=== PATIENT | female | born 1975 | race African-American/Black ===

== ENCOUNTER 2017-01-20 13:56 | Emergency (ER) | payer OTHER ==
[2017-01-20 14:12] VITALS: BP 124/88; PULSE 95; TEMP 99.1; BMI 36.6
--- NOTE | 2017-01-20 14:12 | PDOC ---
History of Present Illness - General Chief Complaint: Pain, Acute Stated Complaint: LEFT LEG PAIN AND PALPITATIONS Time Seen by Provider: 01/20/17 13:59 History Source: Patient Exam Limitations: No Limitations - History of Present Illness Initial Comments: 01/20/17 14:57 45y F hx of asthma presents with LLE pain. Pt states pain started sevearl days ago, worse when she bears weeight but worsening daria past day where she can barely walk. Pt notes the pain started initially on her distal posterior LLE near achilels tendon, and gradual started sperading up her leg to her calf. Ptd enies any recent trauma/falls/injuries. Pt has been resting it but has not taken any paoin meds. Pt endorses feeling intermittent palpitations, one episode last night and again this morning where she felt her heart beating more prominently and maybe alittle irregularly lasting for 5 min. Pt deneis any increased swelling of her calfs, hemoptysis, fever/chills, chest pain, CH[employer]. no smoking no hx of PE/dvt, but mom has hx of blood cluts (pt is notsure why) Past History - Past Medical History Allergies/Adverse Reactions: Allergies Allergy/AdvReac Type Severity Reaction Status Date / Time No Known Allergies Allergy Unverified 01/20/17 14:14 Home Medications: Ambulatory Orders Montelukast Na [Singulair -] 10 mg PO HS 01/20/17 Asthma: Yes - Surgical History Gastric Stapling: Yes - Psycho/Social/Smoking Cessation Hx Anxiety: No Suicidal Ideation: No Smoking History: Never smoked Information on smoking cessation initiated: No Hx Alcohol Use: No Drug/Substance Use Hx: No Substance Use Type: None Review of Systems - Review of Systems Able to Perform ROS?: Yes Comments:: 01/20/17 15:00 Constitutional - no reported Fever, Chills, HEENT: no reported vision changes, sore throat Respiratory: no reported cough, sob, hemoptysis Cardiac: +palpitations, no reported chest pain, light headedness, leg swelling Abd/GI: no reported abd pain, nausea, vomiting, blood per rectum, melena, diarrhea : no reported dysuria, frequency, discharge Musculskelatal - +LLE pain no reported back pain, joint swelling skin - no reported bruising, erythema, rash neurological: no reported headache, numbness, focal weakness, tingling, ataxia, hematologic: no reported anemia, easy bruising, easy bleeding *Physical Exam - Vital Signs Last Vital Signs Temp Pulse Resp BP Pulse Ox 99.1 F 95 H 16 124/88 99 01/20/17 13:58 01/20/17 13:58 01/20/17 13:58 01/20/17 13:58 01/20/17 13:58 - Physical Exam Comments: 01/20/17 15:01 GENERAL: The patient is awake, alert, and fully oriented, Nontoxic - in no acute distress. HEAD: Normocephalic, atraumatic. EYES: extraocular movements intact, sclera anicteric, conjunctiva clear. ENT: Normal voice, Moist mucous membranes. NECK: Normal range of motion, supple LUNGS: Breath sounds equal, clear to auscultation bilaterally. No wheezes, no rhonchi, no rales. HEART: Regular rate and rhythm, normal S1 and S2 without murmur, rub or gallop. ABDOMEN: Soft, nontender, normoactive bowel sounds. No guarding, no rebound. . No CVA tenderness EXTREMITIES: Tenderness is located at insertion point of Achilles tendon to calcaneus, but mild tenderness of achilles tendon and calf, large calfs, but seems symemtric, no pitting edema. NEUROLOGICAL: No facial assymetry, Normal speech, PSYCH: Normal mood, normal affect. SKIN: Warm, Dry, normal turgor, Heart Score/ECG Review - ECG Impressions Comment:: 01/20/17 15:01 Twelve-lead EKG was performed and reviewed by me. There is normal sinus rhythm with a normal rate. Rate of 84 The axis is normal. The intervals are normal. There is normal R wave progression There are no ST or T wave abnormalities. Impression: Normal twelve-lead EKG ED Treatment Course - LABORATORY CBC & Chemistry Diagram: 01/20/17 14:25 01/20/17 14:25 Medical Decision Making - Medical Decision Making 01/20/17 15:02 Suspect Achilles tendonopathy Due to the familal history of DVT will obtain ultrasound Will obtain EKG we'll check basic blood work to rule out anemia, metabolic derangement as cause of her palpitations ibuprofen for her pain 01/20/17 15:52 labs and US engative will dc with pmd fu return precautions were discussed I discussed the physical exam findings, ancillary test results and final diagnoses with the patient. I answered all of the patient's questions. The patient was satisfied with the care received and felt comfortable with the discharge plan and treatment plan. The patient will call their primary care physician within 24 hours to arrange follow-up and will return to the Emergency Department with any new, persistent or worsening symptoms. *DC/Admit/Observation/Transfer Diagnosis at time of Disposition: Achilles tendinitis, left leg - Discharge Dispostion Disposition: HOME Condition at time of disposition: Improved Admit: No - Referrals Referrals: Jermaine Ascencio MD [Staff Physician] - - Patient Instructions Printed Discharge Instructions: DI for Achilles Tendinopathy Additional Instructions: Return to the emergency department immediately with ANY new, persistent or worsening symptoms. Take ibuprofen or Tylenol as needed for pain Try to minimize ambulation. You MUST call and follow up with your doctor tomorrow for further evaluation of your symptoms. Results were discussed with you. Please make sure your doctor reviews the results of your emergency evaluation.
[2017-01-20 14:55] LABS: BASOPHIL 1.3 % (0-2.0); MCH 27.5 pg (25.7-33.7); MCHC 32.5 g/dl (32.0-36.0); MEAN CELL VOLUME 84.8 fl (80-96); MEAN PLT VOLUME 9.5 fl (7.5-11.1); PLATELET COUNT 249 K/MM3 (134-434); RDW 14.4 % (11.6-15.6); WHITE BLOOD COUNT 7.2 K/mm3 (4.0-10.8)
[2017-01-20] MEDS ORDERED: IBUPROFEN 400 MG TABLET (FP) PO ONE ×2 (14:56→14:58)
[2017-01-20 15:12] LABS: ALBUMIN 3.9 g/dl (3.5-5.0); ALK PHOS 65 U/L (32-92); ANION GAP 6 (8-16); BILIRUBIN,TOTAL 0.3 mg/dl (0.2-1.0); CALCIUM 8.9 mg/dl (8.4-10.2); CO2 28 mmol/L (22-28); GLUCOSE,RANDOM 104 mg/dl (74-106); SGOT/AST 19 U/L (10-42); SGPT/ALT 15 U/L (10-40)
--- NOTE | 2017-01-21 17:16 | EKG ---
Test Reason : Blood Pressure : / mmHG Vent. Rate : 084 BPM Atrial Rate : 084 BPM P-R Int : 152 ms QRS Dur : 096 ms QT Int : 374 ms P-R-T Axes : 073 064 040 degrees QTc Int : 441 ms NORMAL SINUS RHYTHM NORMAL ECG NO PREVIOUS ECGS AVAILABLE Confirmed by LISA CHACKO MD ([id number]) on 01/21/2017 5:16:21 PM Referred By: MD DUBOSE Confirmed By:LISA CHACKO MD
== END 2017-01-20 16:07 | disposition home or self-care (01) ==
LOC: FER 13:56
DX: M76.62 Achilles tendinitis, left leg (principal); J45.909 Unspecified asthma, uncomplicated
CPT/HCPCS: 36415; 80053; 85025; 93005; 93971-TC; 99283-25

== ENCOUNTER 2019-03-03 02:26 | Emergency (ER) | payer OTHER ==
[2019-03-03 02:35] VITALS: BP 150/93; PULSE 74; TEMP 98.3; BMI 37.8
--- NOTE | 2019-03-03 02:41 | PDOC ---
History of Present Illness - General Chief Complaint: Bite Stated Complaint: BUG BITE ON BUTT CHEEK Time Seen by Provider: 03/03/19 02:34 - History of Present Illness Initial Comments: This 43-year-old woman with a history of asthma presents with red, swollen, itchy area of the right buttock for the last 36 hours. Patient states that she was at the pool when she first noted insect bite in the area. Over the next 24 hours, area became more swollen and red. She applied 2.5% hydrocortisone cream that she had at home, along with cool compresses to the area. She presents now because area is persistently swollen and itchy. There has been no purulent drainage/patient has no fever or chills. No wheezing/difficulty breathing. No history of cellulitis/abscess. She has no history of diabetes mellitus or difficulty with wound healing. She denies previous local ALLERGIC reaction to insect bites No known allergies to medications Medications as noted below Past History - Past Medical History Allergies/Adverse Reactions: Allergies Allergy/AdvReac Type Severity Reaction Status Date / Time No Known Allergies Allergy Verified 03/03/19 02:27 Home Medications: Ambulatory Orders Montelukast Na [Singulair -] 10 mg PO HS 01/20/17 Mometasone/Formoterol [Dulera 100 Mcg/5 Mcg Inhaler] 2 inh IH BID 03/03/19 Asthma: Yes COPD: No - Surgical History Gastric Stapling: Yes - Immunization History Immunization Up to Date: Yes - Suicide/Smoking/Psychosocial Hx Smoking History: Never smoked Have you smoked in the past 12 months: No Information on smoking cessation initiated: No Hx Alcohol Use: No Drug/Substance Use Hx: No Substance Use Type: None Review of Systems - Review of Systems Able to Perform ROS?: Yes Comments:: 12 point review of systems is negative except for what is noted in the history of present illness *Physical Exam - Vital Signs Last Vital Signs Temp Pulse Resp BP Pulse Ox 98.3 F 74 16 150/93 100 03/03/19 02:32 03/03/19 02:32 03/03/19 02:32 03/03/19 02:32 03/03/19 02:32 - Physical Exam Comments: GENERAL: Adult female, alert and oriented 3, in no acute distress HEAD: Normal with no signs of trauma. EYES: PERRLA, EOMI, sclera anicteric, conjunctiva clear. ENT: Ears normal, nares patent, oropharynx clear without exudates. NECK: Normal range of motion, supple without lymphadenopathy, JVD, or masses. LUNGS: Breath sounds equal, clear to auscultation bilaterally. No wheezes, and no crackles. NEUROLOGICAL: Cranial nerves II through XII grossly intact. Normal speech. No focal neurological deficits. SKIN: 10 cm x 8 cm oval, edematous, slightly indurated, erythematous area of the superior portion of the right buttock. No fluctuance, no purulent discharge noted. Area is slightly warm to touch. It is not tender Progress Note - Progress Note Progress Note: This 43-year-old woman presents with 36 hours of pruritic, erythematous, mildly indurated area around mosquito bite on her right buttock. No previous history of localized ALLERGIC reaction to insect toxin. No evidence of systemic ALLERGIC reaction. Exam is noted. Presentation most consistent with enhanced local ALLERGIC reaction to insect toxin (probably mosquito). No evidence of systemic ALLERGIC reaction. The patient has already been using hydrocortisone cream which she previously had for another issue. She can continue to use this as well as local cool compresses. She can also use an antihistamine such as Benadryl or nonsedating Claritin/Zyrtec for pruritus. Time course is too early for secondary bacterial infection; patient should continue observation of the area and return here or see her doctor if she has persistence of symptoms for more than 3 days or area becomes larger and more symptomatic *DC/Admit/Observation/Transfer Diagnosis at time of Disposition: Allergic reaction to insect bite - Discharge Dispostion Disposition: HOME Condition at time of disposition: Stable - Referrals - Patient Instructions Printed Discharge Instructions: DI for Insect Bites and Stings Additional Instructions: continue cool compresses to swollen area Continue hydrocortisone cream to swollen area twice a day for one week Benadryl/Claritin as needed for itching Make sure you use insect repellent when outside Return to ER or see your doctor if area gets larger, more painful or warm or if it is present for more than 3 more days - Post Discharge Activity
== END 2019-03-03 02:45 | disposition home or self-care (01) ==
LOC: FER 02:26
DX: T78.49XA Other allergy, initial encounter (principal); X58.XXXA Exposure to other specified factors, initial encounter; Y92.9 Unspecified place or not applicable; J45.909 Unspecified asthma, uncomplicated
CPT/HCPCS: 99281-25

== ENCOUNTER 2019-07-11 10:50 | Emergency (ER) | payer SELFPAY ==
[2019-07-11] MEDS ORDERED: ALBUTEROL SO4 2.5/IPRATROPIUM 0.5 INH SOL 3 ML VIAL.NEB. NEB ONE ×2 (11:08→11:18)
[2019-07-11 11:13] VITALS: BP 130/70; PULSE 93; TEMP 98.7; BMI 37.8
--- NOTE | 2019-07-11 11:14 | PDOC ---
History of Present Illness - General Chief Complaint: Asthma Stated Complaint: ASTHMA Time Seen by Provider: 07/11/19 10:57 - History of Present Illness Initial Comments: Ms. Magaly Walden is a 43F with PMH significant for asthma, presenting with shortness of breath and wheezing that started two days ago. She recently returned on 10 hour flight from [facility], where she was visiting for the past month. She was cleaning her house when the wheezing started and did not wear a mask as she usually does. She tried her home albuterol inhaler with did not resolve symptoms, and her home nebulizer was not working. She was seen at urgent care today and sent to the ER. Reports chest pain that worsens when she takes a breath. Denies leg swelling. Denies smoking. Not on control. No prior hx of blood clots. Past History - Past Medical History Allergies/Adverse Reactions: Allergies Allergy/AdvReac Type Severity Reaction Status Date / Time No Known Allergies Allergy Verified 07/11/19 11:00 Home Medications: Ambulatory Orders Montelukast Na [Singulair -] 10 mg PO HS 01/20/17 Mometasone/Formoterol [Dulera 100 Mcg/5 Mcg Inhaler] 2 inh IH BID 03/03/19 Albuterol Sulfate Inhaler - [Ventolin HFA Inhaler -] 2 puff IH BID #1 inhaler Albuterol Sulfate Inhaler - [Ventolin Hfa Inhaler -] 2 inh PO Q4H PRN 07/11/19 Nebulizer and Compressor [Vios Aerosol Delivery System] 1 each MC Q4H PRN #1 each 07/11/19 Prednisone [Prednisone 50 MG TABLETS] 40 mg PO DAILY 5 Days #5 tablet 07/11/19 Asthma: Yes COPD: No - Surgical History Gastric Stapling: Yes - Immunization History Immunization Up to Date: Yes - Psycho Social/Smoking Cessation Hx Smoking History: Never smoked Have you smoked in the past 12 months: No Hx Alcohol Use: No Drug/Substance Use Hx: No Substance Use Type: None Review of Systems - Review of Systems Comments:: GENERAL/CONSTITUTIONAL: No fever or chills. No weakness._ HEAD, EYES, EARS, NOSE AND THROAT: No change in vision. No change in hearing. No sore throat._ CARDIOVASCULAR: Reports pleuritic chest pain. Reports shortness of breath and wheezing. RESPIRATORY: Denies cough, hemoptysis_ GASTROINTESTINAL: No nausea, vomiting, diarrhea or constipation._ GENITOURINARY: No dysuria, frequency, or change in urination._ MUSCULOSKELETAL: No joint or muscle swelling or pain. No neck or back pain._ SKIN: No rash_ NEUROLOGIC: No headache, vertigo, loss of consciousness, or change in strength/ sensation._ ENDOCRINE: No increased thirst. No abnormal weight change_ HEMATOLOGIC/LYMPHATIC: No anemia, easy bleeding, or history of blood clots._ ALLERGIC/IMMUNOLOGIC: No hives or skin allergy._ *Physical Exam - Vital Signs Last Vital Signs Temp Pulse Resp BP Pulse Ox 98.7 F 93 H 16 130/70 100 07/11/19 10:56 07/11/19 10:56 07/11/19 10:56 07/11/19 10:56 07/11/19 10:56 - Physical Exam Comments: GENERAL: Awake, alert, and oriented to person/place/time, in no acute distress_ HEAD: No signs of trauma, normocephalic, atraumatic _ EYES: PERRLA, EOMI, sclera anicteric, conjunctiva clear_ ENT: Hearing grossly normal, nares patent, oropharynx clear without exudates. No uvular deviation. Moist mucosa_ NECK: Normal ROM, supple, no lymphadenopathy, JVD, or masses_ LUNGS: No distress, speaks in full sentences, diffuse wheezing in bilateral upper and lower lung strong. HEART: Regular rate and rhythm, normal S1 and S2, no murmurs appreciated, peripheral pulses normal and equal bilaterally._ ABDOMEN: Soft, nontender, normoactive bowel sounds. No guarding, no rebound. No masses_ EXTREMITIES: Normal inspection, Normal range of motion, no edema. No clubbing or cyanosis. No leg swelling. NEUROLOGICAL: Cranial nerves II through XII grossly intact. Normal speech, normal gait, no focal sensorimotor deficits _ SKIN: Warm, Dry, normal turgor, no rashes or lesions noted_ ED Treatment Course - LABORATORY CBC & Chemistry Diagram: 07/11/19 11:19 07/11/19 11:19 - RADIOLOGY Radiology Studies Ordered: Category Date Time Status CHEST CTA [CT] Stat CT Scan 07/11/19 11:04 Ordered Medical Decision Making - Medical Decision Making 07/11/19 11:12 43F hx of asthma, presenting with shortness of breath and wheezing after recent air travel. DDx includes PE vs asthma exacerbation -CBC, CMP, coags -EKG, trop -CTA chest -duonebs, solumedrol 07/11/19 1130 EKG shows NSR, 93 bpm, no ST elevation/depression, no axis deviation, Qtc 455. 07/11/19 1200 Pt reassessed after duoneb and solumedrol. Wheezing significant improved. Labs reviewed and wnl. 07/11/19 12:49 CTA of the chest does not show findings of pulmonary embolism. Patient reassessed and is feeling much better. Will d/c home with prednisone for 5 days and f/u PCP. Discharge - Discharge Information Problems reviewed: Yes Clinical Impression/Diagnosis: Unspecified asthma, with exacerbation Qualifiers: Asthma severity: mild Asthma persistence: unspecified Qualified Code(s): J45.901 - Unspecified asthma with (acute) exacerbation Condition: Stable Disposition: HOME - Admission No - Additional Discharge Information Prescriptions: Albuterol Sulfate Inhaler - [Ventolin HFA Inhaler -] 2 puff IH BID #1 inhaler Nebulizer and Compressor [Vios Aerosol Delivery System] 1 each MC Q4H PRN #1 each PRN Reason: Wheezing Prednisone [Prednisone 50 MG TABLETS] 40 mg PO DAILY 5 Days #5 tablet - Follow up/Referral Referrals: Jermaine Ascencio MD [Primary Care Provider] - - Patient Discharge Instructions Additional Instructions: Please make a follow up appointment with your primary care physician. Please take prednisone (steroids) 40 mg daily for 5 days. If you experience any new, worsening, or concerning symptoms, including shortness of breath, severe wheezing, swelling of the legs, chest pain, or any other concerns, please return to the emergency department. - Post Discharge Activity
[2019-07-11] MEDS ORDERED: methylPREDNISolone NA SUCC 125 MG/2 ML VIAL ONE (11:18)
[2019-07-11 11:47] LABS: INR 1.2 (0.82-1.09); PROTHROMBIN TIME (PATIENT) 13.4 SEC (10.2-13.0)
[2019-07-11 11:49] LABS: BASO % 0.6 % (0-2.0); EOS % 1.5 % (0-4.5); HEMATOCRIT 41.9 % (32.4-45.2); HEMOGLOBIN 13.8 GM/dl (10.7-15.3); LYMPH % 19.7 % (8-40); MCH 29.4 pg (25.7-33.7); MCHC 32.9 g/dl (32.0-36.0); MEAN CELL VOLUME 89.5 fl (80-96); MEAN PLT VOLUME 9.5 fl (7.5-11.1); MONO % 6.9 % (3.8-10.2); NEUT % 71.3 % (42.8-82.8); PLATELET COUNT 251 K/MM3 (134-434); RBC 4.68 M/mm3 (3.60-5.2); RDW 13.6 % (11.6-15.6); WHITE BLOOD COUNT 6.6 K/mm3 (4.0-10.8)
[2019-07-11 11:51] LABS: ALBUMIN 4.1 g/dl (3.4-5.0); BILIRUBIN,TOTAL 1.1 mg/dl (0.2-1); CREATININE 0.8 mg/dl (0.55-1.3); POTASSIUM 3.7 mmol/L (3.5-5.1); TOT PROT 7.5 g/dl (6.4-8.2)
--- NOTE | 2019-07-11 12:33 | PDOC ---
Attending Attestation - Resident Resident Name: Alexx Mcarthur - ED Attending Attestation I have performed the following: I have examined & evaluated the patient, The case was reviewed & discussed with the resident, I agree w/resident's findings & plan, Exceptions are as noted - HPI HPI: 07/11/19 12:31 Was 43-year-old female history of asthma here today complaining of shortness of breath and wheezing. Patient stated her symptoms started a few days ago when she was cleaning her house using some cleaning chemicals. Does not have a nebulizer machine as her current machine is broken she was using her albuterol pump with minimal relief not on any current steroids no history of previous intubations. No history of previous icu use visits. Has been on steroids for her asthma approximately 2 times a year has been on a controlled inhaler in the past in addition to taking Zyrtec or Claritin for allergy symptoms.Patient did just return from traveling to [facility] where she was there for 1 month denies any chest pain 07/11/19 12:33 - Physicial Exam PE: 07/11/19 12:32 Awake alert no acute distress patient lungs are clear bilaterally post nebulizer no wheezes normal effort. Heart is regular without any murmurs rubs or gallops abdomen is soft nontender extremities are warm well perfused. There is no appreciated calf tenderness no noted edema no leg swelling. Skin is warm and dry - Medical Decision Making 07/11/19 12:32 43-year-old female history of asthma here today with wheezing does have a history of recent travel to [facility] differential includes asthma exacerbation, PE was considered due to her recent travel. Will obtain a CTA given nebs feels much improved will prescribe steroids for 5 days given a new perception for her albuterol nebulizer machine and follow-up with her PCP was sent home on a 5-day course of steroids 07/11/19 12:50 CT is negative patient is improved discharged home with a prescription for nebulizer albuterol and steroids
[2019-07-11] MEDS ORDERED: predniSONE 20 MG TABLET (UD) PO ONE (12:51)
--- NOTE | 2019-07-12 11:02 | EKG ---
Test Reason : Blood Pressure : / mmHG Vent. Rate : 093 BPM Atrial Rate : 093 BPM P-R Int : 142 ms QRS Dur : 088 ms QT Int : 366 ms P-R-T Axes : 069 047 012 degrees QTc Int : 455 ms NORMAL SINUS RHYTHM NORMAL ECG WHEN COMPARED WITH ECG OF 20-JAN-2017 14:28, NO SIGNIFICANT CHANGE WAS FOUND Confirmed by LISA CHACKO MD ([id number]) on 07/12/2019 11:02:07 AM Referred By: CJ HICKMAN Confirmed By:LISA CHACKO MD
[2019-07-12] MEDS ORDERED: methylPREDNISolone NA SUCC 125 MG/2 ML VIAL IVPUSH ONE (11:08)
== END 2019-07-11 13:09 | disposition home or self-care (01) ==
LOC: FER 10:50 → SUPCPDRO 10:50 → FER 13:09
PROC: 3E0333Z Introduction of Anti-inflammatory into Peripheral Vein, Percutaneous Approach (ICD-10-PCS; principal; 2019-07-11)
PROC: 3E0F7GC Introduction of Other Therapeutic Substance into Respiratory Tract, Via Natural or Artificial Opening (ICD-10-PCS; 2019-07-11)
DX: J45.901 Unspecified asthma with (acute) exacerbation (principal)
CPT/HCPCS: 36415; 71275-TC; 80053; 81025; 82550; 82553; 84484; 85025; 85610; 85730; 93005; 99283-25

== ENCOUNTER 2022-07-16 21:47 | Emergency (ER) | payer OTHER ==
[2022-07-16 22:01] VITALS: BP 135/84; PULSE 77; RESP 17; TEMP 98.3; BMI 36.6
== END 2022-07-17 00:14 | disposition home or self-care (01) ==
LOC: FER 21:47
DX: R51.9 Headache, unspecified (principal)
CPT/HCPCS: 70450-TC; 93005; 99284-25

== ENCOUNTER 2024-09-22 22:14 | Emergency (ER) | payer OTHER ==
[2024-09-22 22:25] VITALS: BP 129/80; PULSE 80; RESP 18; TEMP 97.3; BMI 39.9
[2024-09-22] MEDS ORDERED: METOCLOPRAMIDE HCL INJECTION 10 MG/2 ML VIAL ONE (22:51)
[2024-09-22] MEDS ORDERED: ACETAMINOPHEN INJECTION 100 ML ONE (22:51)
[2024-09-22 23:17] LABS: HEMATOCRIT 41.1 % (32.4-45.2); HEMOGLOBIN 13.3 G/dL (10.7-15.3); MCH 28.7 pg (25.7-33.7); MCHC 32.3 g/dl (32.0-36.0); MEAN CELL VOLUME 88.8 fl (80-96); MEAN PLT VOLUME 9.5 fl (7.5-11.1); PLATELET COUNT 211.8 10^3/uL (134-434); RBC 4.63 10^6/uL (3.60-5.2); RDW 14.6 % (11.6-15.6); WHITE BLOOD COUNT 7.3 10^3/uL (4.0-10.8)
[2024-09-22 23:26] LABS: PLATELET ESTIMATE ADEQUATE
[2024-09-22 23:33] LABS: ALBUMIN 4.2 g/dl (3.4-5.0); BILIRUBIN,TOTAL 0.6 mg/dl (0.2-1); CALCIUM 9.4 mg/dl (8.5-10.1); CREATININE 0.8 mg/dl (0.6-1.3); POTASSIUM 4.2 mmol/L (3.5-5.1); TOT PROT 7.1 g/dl (6.4-8.2)
[2024-09-22] MEDS: SODIUM CHLORIDE 0.9% 1000 ML INFUS.BAG IV ONE (23:36)
[2024-09-22] MEDS: ACETAMINOPHEN 1000 MG/100 ML BAG IVPB ONE (23:36)
[2024-09-22] MEDS: METOCLOPRAMIDE HCL INJECTION 10 MG/2 ML VIAL IVPB ONE (23:37)
[2024-09-23] MEDS ORDERED: DEXAMETHASONE SOD PHOSPHATE 10 MG/1 ML VIAL ONE (01:19)
[2024-09-23] MEDS: DEXAMETHASONE SOD PHOSPHATE 10 MG/1 ML VIAL IVPUSH ONE (01:30)
[2024-09-23] MEDS: PSEUDOEPHEDRINE HCL 60 MG TABLET PO ONE (01:30)
== END 2024-09-23 01:40 | disposition home or self-care (01) ==
LOC: FER 22:14
PROC: 3E033NZ Introduction of Analgesics, Hypnotics, Sedatives into Peripheral Vein, Percutaneous Approach (ICD-10-PCS; principal; 2024-09-22)
PROC: 3E033GC Introduction of Other Therapeutic Substance into Peripheral Vein, Percutaneous Approach (ICD-10-PCS; 2024-09-22)
PROC: 3E033GC Introduction of Other Therapeutic Substance into Peripheral Vein, Percutaneous Approach (ICD-10-PCS; 2024-09-23)
DX: M79.604 Pain in right leg (principal); G44.89 Other headache syndrome; Z20.822 Contact with and (suspected) exposure to COVID-19
CPT/HCPCS: 0241U-QW; 36415; 70450-TC; 80053; 81003; 81015; 81025; 85027; 87086; 93971-RT; 99284-25; J0131; J1100